=== PATIENT | male | born 1960 | race Caucasian/White ===

== ENCOUNTER 2017-01-17 21:25 | Inpatient (IN) | payer MEDICARE, OTHER ==
--- NOTE | ~2017-01-17 | CR72 ---
[facility] A Service of [facility] RADIOLOGY TEXT RESULTS PATIENT: CAMMIE DOYLE LOCATION: C2A 223-01 : 58 UNIT #: [id number] AGE: [address]: Yunier Gloria MD SEX: M ORDER DR: [id number] [facility] [address] [place], [place] [address] [id number] I MR#: [id number] Acc #: [id number] NAME: CAMMIE DOYLE : 1960 SEX: M STUDY DATE/TIME: 01/22/2017 4:10 UNIT: A ROOM: [facility] STUDY DESCRIPTION: CR Chest Single View Portable Attending Physician: Yunier Gloria M.D. Ordering Physician: Ariella Hamilton M.D. Primary Care Physician: Walter Hagan Jr., M.D. MEDICAL IMAGING REPORT This report is preliminary unless electronic signature is present EXAM Portable chest, 01/22/2017 HISTORY 56-year-old male with shortness of air for 4 days. COMPARISON Chest, 01/19/2017 FINDINGS Frontal chest demonstrates minimal left basilar atelectasis/infiltrate. Right lung is clear. No pneumothorax. Heart size and mediastinum are stable. Left-sided AICD complex. IMPRESSION Mild left basilar atelectasis/infiltrate. Dictated by... Kai Winter M.D. THIS IS AN ELECTRONICALLY VERIFIED REPORT Kai Winter M.D. at 01/23/2017 4:41 PM BRENDON/isabella TD: 01/22/2017 17:03 JOB #: [id number] MEDICAL IMAGING REPORT Page 1 of 1 COPY
--- NOTE | ~2017-01-17 | DS ---
Unit #: [id number] #: [id number] Patient: CAMMIE DOYLE [id number] [address] [address] [id number] I MR#: [id number] NAME: CAMMIE DOYLE ROOM: 223 Age: 56 Sex: M Admission Date: 01/18/2017 : 1960 Discharge Date: 01/23/2017 Attending Physician: Yunier Gloria M.D. Primary Care Physician: Walter Hagan Jr., M.D. DISCHARGE SUMMARY DISCHARGE DIAGNOSES 1. Acute chronic obstructive pulmonary disease exacerbation. 2. Acute hypoxic respiratory failure. 3. Left lower lobe pneumonia. 4. Obstructive sleep apnea, on continuous positive airway pressure. 5. Conjunctivitis. Will continue with 2 more days of Cipro eyedrops. 6. New lung nodule. Dr. Hamilton has been following the patient and can make additional recommendations upon discharge. 7. Major depressive disorder. Stable during this hospitalization. 8. Type 2 diabetes. A1C of 4.8. 9. Cognitive deficits. The patient has full-time corrective therapist at home. 10. Diastolic heart failure with an automatic implantable cardioverter-defibrillator device in place. 11. Chronic thrombocytopenia. 12. Deconditioning, needing rehab. CONSULTANTS Dr. Ariella Hamilton, pulmonary. PROCEDURES None. DIAGNOSTIC STUDIES IMAGING: CT of abdomen and pelvis on 01/16/17. Impression - No acute findings to explain the patient's epigastric pain. Extensive cholelithiasis, but no convincing evidence for acute cholecystitis. Interval enlargement of a nodule in the posterior right lung base. Consider followup with a CT scan. Minimal opacity in the lateral right lung base representing atelectasis or subtle infiltrate. Moderate colonic stool burden. Chest x-ray on 01/17/17. Impression - Minimal subsegmental infiltrate or atelectasis in the inferolateral right upper lobe. Minimal fluid or pleural thickening in the lateral left base. Mild cardiac enlargement. Chest "CT" on 01/19/17. Stable mild cardiac enlargement. The lungs are moderately well inflated. Patchy and linear densities in the right upper lung zone, stable from prior study. Chest x-ray on 01/22/17. Impression - Mild left basilar atelectasis or infiltrate. LABS: The day prior to discharge the patient's labs include BMP with glucose of 226, BUN 27, creatinine 0.9, sodium 143, potassium 5.2, Unit #: [id number] #: [id number] Patient: CAMMIE DOYLE chloride 104, CO2 32, calcium 9.6, magnesium 2, total protein 6, albumin 3.2, total bilirubin 0.6, AST 11, ALT 17, alkaline phosphatase 40. CBC with WBC of 8.1, RBC 3.45, hemoglobin 11.1, hematocrit 33.5, MCV 97.1, MCH 32.3, MCHC 33.3, RDW 13.2, platelets 119, MPV 10.7. HOSPITAL COURSE The patient is a 56-year-old male with past medical history of type 2 diabetes, essential hypertension, congestive heart failure and cognitive deficit who was brought to the emergency department due to symptoms of dyspnea. The patient stated that he was in his usual state of health until 4 days prior to admission when he developed upper respiratory symptoms. He had a nonproductive deep cough, weakness and has been a bit unsteady on his feet. Most of the history was provided by his caregiver who was at the bedside. He was seen recently for abdominal pain and needed to be evaluated for possible hernia repair in the future. Upon presentation to the emergency department, initial oxygen saturation was 88% to 90% on room air. On exam, the patient had bilateral conjunctivitis. The patient was actually quite hypoxic, needing an Oxymizer for oxygen, initially at 8 liters a minute in the emergency department to keep his oxygen in the mid 90s. The patient was admitted for COPD exacerbation, as well as acute hypoxic respiratory failure and likely pneumonia. A BNP was accessed, which was unremarkable, and the patient had no peripheral signs of edema. The patient did have much bronchospasm on initial assessment. We did find the patient had new lung nodule on CT of his abdomen; therefore, pulmonary with Dr. Hamilton was consulted, and he has been following the patient. With regard to any workup, whether surveillance CT or any future workup, to be up to pulmonary to decide. The patient had been receiving high-dose IV steroid, as well as supportive bronchodilator, oxygen and treatment for his conjunctivitis with Cipro eyedrops and antibiotics with doxycycline for his pneumonia. Due to the patient's ongoing upper respiratory infection, as well as pneumonia, the patient has been deconditioned much. The patient has been unable to sit up or pull himself up out of bed in order to eat according to occupational therapy who has seen the patient in consultation. The patient does have 24-hour caregiver at home, but the patient has deconditioning to the point where she would not be able to care for him at this time. Therefore, we are recommending that the patient be discharged to subacute rehab hopefully at [facility]. DISCHARGE CONDITION Stable. DISCHARGE FOLLOWUP/PLAN 1. Follow up with primary care physician within 1-2 weeks upon discharge from rehab. 2. Follow up with pulmonary as necessary. 3. At this time, the patient is 97% on 2 liters of oxygen. We are checking to see how the patient would do on room air. If his oxygen is above 92%, he may be discharged without oxygen. If it is below 92%, the patient may be discharged to rehab with oxygen usage to keep oxygen saturation above 92, weaning to room air as tolerated. 4. The patient can have CBC and a CMP performed within 3 days. DISCHARGE DIET Heart healthy diet with consistent carb. ACTIVITIES Unit #: [id number] #: [id number] Patient: CAMMIE DOYLE Resume activities with assistance of physical and occupational therapy as tolerated with ambulating every day. DISCHARGE MEDICINES 1. Prednisone 40 mg orally for the next 3 days, 30 mg orally for 3 days, 20 mg orally for the next 3 days, 10 mg orally for the next 3 days, then stop. 2. Flomax 0.4 mg orally at bedtime. 3. Amiodarone 200 mg orally daily. 4. Depakote 500 mg orally b.i.d. 5. Gabapentin 300 mg orally t.i.d. 6. Topamax 25 mg orally b.i.d. 7. Glucophage 500 mg orally b.i.d. Can be held if blood sugar is less than 150 prior to its administration via Accu-Cheks. 8. Risperidone 1 mg orally b.i.d. 9. Coreg 12.5 mg orally b.i.d. 10. Atorvastatin 10 mg orally at bedtime. 11. Lisinopril 20 mg orally b.i.d. 12. Neither Humulin N or Humulin R is necessary with an A1C of 4.8. 13. Cipro 0.3% ophthalmic solution 1 drop to each eye q.i.d. for the next 2 days. 14. Aspirin 81 mg orally daily. 15. Spironolactone 12.5 mg orally daily. 16. Protonix 40 mg orally daily. 17. Xopenex inhaled t.i.d. 18. Doxycycline 100 mg orally b.i.d. until January 27. 19. I am asking that please perform eyelid scrub to the patient with water and mild baby soap until there is no longer crusting on the eyelid. Dictated by... Maria De Jesus Anna PA-C for Sarah Gudino TD: 01/23/2017 09:31 JOB #: [id number] DISCHARGE SUMMARY Page 1 of 1 X X DISCHARGE SUMMARY
--- NOTE | ~2017-01-17 | CR72 ---
[facility] A Service of [facility] RADIOLOGY TEXT RESULTS PATIENT: CAMMIE DOYLE LOCATION: CEDOF [id number] : 58 UNIT #: [id number] AGE: [address]: Yunier Gloria MD SEX: M ORDER DR: [id number] [facility] [address] [place], [place] [address] [id number] I MR#: [id number] Acc #: [id number] NAME: CAMMIE DOYLE : 1960 SEX: M STUDY DATE/TIME: 01/17/2017 21:08 UNIT: [facility] ROOM: [facility] STUDY DESCRIPTION: CR Chest Single View Portable Attending Physician: Radha Medina M.D. Ordering Physician: Americo Joyner M.D. Primary Care Physician: Walter Hagan Jr., M.D. MEDICAL IMAGING REPORT This report is preliminary unless electronic signature is present EXAM Portable chest, 01/17/2017 HISTORY Cough, shortness of air and congestion for 4 days. FINDINGS Mild cardiac enlargement. Normal pulmonary vascularity. Small amount of fluid or pleural thickening at the left base. Mild linear atelectasis or scarring in the lateral right upper lobe and subtle subsegmental infiltrate or atelectasis in the inferolateral right upper lobe. Left subclavian pacer leads extend into the right atrium and right ventricle. IMPRESSION 1. Minimal subsegmental infiltrate or atelectasis in the inferolateral right upper lobe. 2. Minimal fluid or pleural thickening in the lateral left base. 3. Mild cardiac enlargement. Dictated by... Shad Lutz M.D. THIS IS AN ELECTRONICALLY VERIFIED REPORT Shad Lutz M.D. at 01/18/2017 2:43 PM DFBrad/kasandra TD: 01/18/2017 04:05 JOB #: [id number] MEDICAL IMAGING REPORT [facility] A Service of [facility] RADIOLOGY TEXT RESULTS PATIENT: CAMMIE DOYLE LOCATION: CEDOF [address]-59 : [birth year] UNIT #: [id number] AGE: [address]: Yunier Gloria MD SEX: M ORDER DR: Page 1 of 1 COPY
--- NOTE | ~2017-01-17 | CR71 ---
[facility] A Service of [facility] RADIOLOGY TEXT RESULTS PATIENT: CAMMIE DOYLE LOCATION: [place] [id number] : [birth year] UNIT #: [id number] AGE: [address]: Yunier Gloria MD SEX: M ORDER DR: [id number] [facility] [address] [place], [place] [address] [id number] I MR#: [id number] Acc #: [id number] NAME: CAMMIE DOYLE : 1960 SEX: M STUDY DATE/TIME: 01/19/2017 5:04 UNIT: C5B ROOM: 2 STUDY DESCRIPTION: CR Chest Single View Attending Physician: Yunier Gloria M.D. Ordering Physician: Ariella Hamilton M.D. Primary Care Physician: Walter Hagan Jr., M.D. MEDICAL IMAGING REPORT This report is preliminary unless electronic signature is present EXAM Portable chest x-ray 01/19/2017 HISTORY Pneumonia. FINDINGS AP radiograph of the chest is presented. Patient gives additional history of respiratory failure for 6 days. Comparison 01/17/2017. Cardiac pacemaker unchanged. Stable mild cardiac enlargement. The lungs are moderately well inflated. There are some mild patchy and linear densities in the right upper lung zone stable to marginally increased from prior study, in the lateral right upper lobe, and at the left lung base. These are nonspecific and could involve areas of pneumonitis/developing pneumonia and/or atelectasis. There is no dense airspace consolidation. Slightly ill-defined left lateral costophrenic sulcus may reflect small pleural effusion. No pneumothorax. No suspicious nodule. Underlying pulmonary vasculature appears within normal limits. Followup of findings to radiographic resolution recommended. Dictated by... Prashant Valadez M.D. THIS IS AN ELECTRONICALLY VERIFIED REPORT Prashant Valadez M.D. at 01/20/2017 5:05 PM MARIUSZ/finn TD: 01/19/2017 10:01 JOB #: [id number] MEDICAL IMAGING REPORT [facility] A Service of [facility] RADIOLOGY TEXT RESULTS PATIENT: CAMMIE DOYLE LOCATION: [facility] 223-01 : [birth year] UNIT #: [id number] AGE: [address]: Yunier Gloria MD SEX: M ORDER DR: Page 1 of 1 COPY
--- NOTE | ~2017-01-17 | EKG ---
PATIENT: CAMMIE DOYLE UNIT #: [id number] Ventricular Rate: 78 BPM Atrial Rate: 78 BPM P-R Interval: 158 ms QRS Duration: 150 ms Q-T Interval: 422 ms QTC Calculation(Bezet): 481 ms P [place]: 85 degrees Calculated R [place]: -21 degrees Calculated T [place]: 17 degrees Diagnosis Line: Atrial-sensed ventricular-paced rhythm Diagnosis Line: Abnormal ECG Diagnosis Line: When compared with ECG of 17-JAN-2017 21:39, Diagnosis Line: (unconfirmed) Diagnosis Line: Vent. rate has increased BY 2 BPM Diagnosis Line: Confirmed by RAFAEL DUDLEY MD ([id number]) on 01/18/2017 Diagnosis Line: 9:19:52 PM INTERPRETING MD: LUIS ENRIQUE LEONARD
--- NOTE | ~2017-01-17 | HP ---
Unit #: [id number] #: [id number] Patient: CAMMIE DOYLE [id number] [address] [place], [place] [address] [id number] I MR#: [id number] NAME: CAMMIE DOYLE ROOM: [facility] Age: 56 Sex: M Admission Date: 01/18/2017 : 1960 Attending Physician: Radha Medina M.D. Primary Care Physician: Walter Hagan Jr., M.D. HISTORY AND PHYSICAL CHIEF COMPLAINT Community-acquired pneumonia with respiratory failure. HISTORY This pleasant 56-year-old male with AODM, hypertension, congestive heart failure, and cognitive defects, is admitted for community-acquired pneumonia. The patient was in his usual state of health until four days prior to admission when he developed a URI. He has had a nonproductive deep cough, weakness, and has been a bit unsteady on his feet. Most of the history is given by the caregiver at bedside. He was recently seen for abdominal pain with plans to perform possible hernia repair in the future. I am unsure. A CT scan was performed 01/16/2017 of the abdomen and pelvis showing gallstones, interval enlargement of a nodule at the posterior right lung base, and minimal opacity lateral right lung base representing atelectasis versus subtle infiltrate. The patient presented to this emergency department last evening with worsening cough. His O2 sats on room air were between 88% to 90%. On examination, he does have bilateral conjunctivitis. Was given 500 mg of IV Levaquin, along with Cipro ophthalmic eyedrops bilaterally. PAST MEDICAL HISTORY 1. 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 2. Obstructive sleep apnea, on CPAP. 3. Essential hypertension. 4. Thrombocytopenia, which is chronic. Uncertain of cause. 5. History of arrhythmia and congestive heart failure, status post AICD placement. Will obtain records from [facility]. 6. Major depressive disorder. 7. DJD. 8. Gallstones. 9. Right knee surgery. ALLERGIES No known drug allergies. HOME MEDICATIONS 1. Neurontin 300 mg t.i.d. 2. Novolin N and Novolin R which are only p.r.n. 3. Topamax 25 mg b.i.d. 4. Glucophage 500 mg b.i.d. 5. Amiodarone 200 mg daily. 6. Depakote 500 mg b.i.d. Unit #: [id number] #: [id number] Patient: CAMMIE DOYLE 7. Lisinopril 20 mg b.i.d. 8. Lipitor 10 mg q. h.s. FAMILY HISTORY Negative for heart or lung disease. SOCIAL HISTORY The patient lives with a caregiver and her son. Stopped smoking eight months ago, does not drink alcohol. REVIEW OF SYSTEMS Notable for deep cough, conjunctivitis, unsteadiness on the feet from urinary incontinence. The patient, himself, is a poor historian due to his cognitive deficit, and most of the history was obtained from caregiver. PHYSICAL EXAMINATION GENERAL APPEARANCE: Pleasant, moderately obese, 56-year-old male, currently in no acute distress. VITAL SIGNS: Temperature 98, pulse 75, respirations 18, blood pressure 137/62. O2 saturation was anywhere between 88 to above 90% on room air. HEENT: Eyes PERRLA. Extraocular muscles are intact. Bilateral conjunctivitis noted. Pharynx is benign, edentulous with dry mucosal membranes. NECK: Supple without adenopathy or thyromegaly. CHEST: There may be a few crackles at the right base. CARDIAC: Normal S1 and S2 without murmur. ABDOMEN: Bowel sounds are present. The patient is tender in the epigastric and right upper quadrant without rebound or guarding. No hepatosplenomegaly or masses. EXTREMITIES: Without edema. Pedal pulses are present but diminished. No ulcers on the feet. NEUROLOGIC EXAM: The patient is awake, alert. He is mildly confused. Has equal strength throughout but is quite weak on exam, needs help just to sit up. DIAGNOSTIC STUDIES LABORATORY: Admission labs - hematocrit 35.2, down from 40 six years ago. Platelet count is 120. Has been low in the past. Normal white count. SMA-12 - albumin is 3.4. BNP normal. Cardiac markers are negative. Flu serology negative. Urinalysis - positive urobilinogen. IMAGING: Chest x-ray - mild cardiomegaly. Infiltrate right upper lobe. Small amount of fluid versus pleural thickening right base. CARDIOVASCULAR: EKG shows atrial sensed ventricular paced rhythm. ASSESSMENT 1. Community-acquired pneumonia with acute hypoxic respiratory failure: Of note, a recent CT scan of the abdomen and pelvis show an enlarging right lower lobe lung nodule. The patient stopped smoking eight months ago. 2. Obstructive sleep apnea, on CPAP. Unit #: [id number] #: [id number] Patient: CAMMIE DOYLE 3. Conjunctivitis. 4. Adult onset diabetes mellitus: The patient uses p.r.n. insulin and Glucophage. 5. Major depressive disorder. 6. Cognitive deficits, patient has caregiver at home. 7. Hypertension. 8. History of congestive heart failure, status post AICD placement: Details are unknown. 9. Chronic mild thrombocytopenia. PLANS 1. Rocephin and doxycycline as patient takes amiodarone. Will also write for Xopenex. 2. Ciprofloxacin ophthalmic solution. 3. Request old records from [facility]. 4. Pulmonary to see given increased lung nodule. 5. DVT prophylaxis. 6. Sliding scale insulin and hold Glucophage. Dictated by Radha Medina M.D. AML/df TD: 01/18/2017 05:26 JOB #: [id number] HISTORY AND PHYSICAL Page 1 of 1 X Radha Medina MD HISTORY AND PHYSICAL
[~2017-01-17 21:25] MED LIST: AFRIN15 ML; ALBUTEROL17 GM INH; BACTRIM DS TABL1 TAB PO; DEPAKOTE PO; FLEXERIL10 MG PO; KEFLEX PO; LORTAB 10/500 T1 TAB PO; METFORMIN PO; VIBRAMYCIN100 M1 PO
[2017-01-17 21:41] LABS: POC - CKMB 2.4 ng/mL (0.0-7.9); POC - TROPONIN <0.05 ng/mL (<=0.05)
[2017-01-17 21:56] LABS: BASOPHIL% 0.5 % (0-2.5); EOSINOPHIL# 0.1 X10e3 (0-0.7); EOSINOPHIL% 2.1 % (0.0-7.0); HEMATOCRIT 35.2 % (38.0-50.0); HEMOGLOBIN 11.7 gm/dL (13.0-16.0); LYMPHOCYTE# 0.7 X10e3 (1.0-3.5); LYMPHOCYTE% 16.4 % (17.0-45.0); MEAN CELL VOLUME 99.2 FL (83-96); MEAN CORPUSCULAR HEMOGLOBIN 33.1 PG (28-34); MEAN CORPUSCULAR HGB CONC 33.4 g/dL (30-36); MEAN PLATELET VOLUME 10.8 FL (6.5-11.5); MONOCYTE# 0.8 X10e3 (0-1.0); MONOCYTE% 18.9 % (3.0-12.0); NEUTROPHIL# 2.7 X10e3 (1.5-7.1); NEUTROPHIL% 62.1 % (40-75); PLATELET COUNT 102 X10e3 (140-420); RED BLOOD COUNT 3.54 X10e (3.90-5.60); WHITE BLOOD COUNT 4.4 X10e3 (4.0-10.5)
[2017-01-17 21:57] LABS: DIFF IND NO
[2017-01-17 22:22] LABS: ALBUMIN SERUM 3.4 g/dL (3.5-5.0); BILIRUBIN, DIRECT 0.1 mg/dL (0.0-0.2); BILIRUBIN,INDIRECT 0.2 mg/dL (0.0-0.9); BILIRUBIN,TOTAL 0.3 mg/dL (0.2-2.0); CALCIUM SERUM 9.3 mg/dL (8.4-10.2); CREATININE SERUM 0.9 mg/dL (0.6-1.4); GLOM FILT RATE Estimated 94.5 mL/min (>60); POTASSIUM 3.8 mmol/L (3.5-5.1)
[2017-01-17 22:41] LABS: INFLUENZA A NEG (NEG)
[2017-01-17 22:42] LABS: INFLUENZA B NEG (NEG)
[2017-01-17 23:17] LABS: URINE SOURCE CLEAN CATCH
[2017-01-17 23:21] LABS: URINE APPEARANCE CLEAR; URINE BILIRUBIN NEG (NEG); URINE BLOOD NEG (NEG); URINE COLOR YELLOW; URINE GLUCOSE NEG (NEG); URINE KETONE 2+ (NEG); URINE LEUKOCYTE ESTERASE NEG (NEG); URINE NITRATE NEG (NEG); URINE PH 6.5 (5-8); URINE PROTEIN NEG (NEG); URINE SPECIFIC GRAVITY 1.024 (1.003-1.035)
[2017-01-17 23:26] LABS: CULTURE INDICATED? NO
[2017-01-17] MEDS ORDERED: RISPERIDONE1 MG PO (23:47)
[2017-01-17] MEDS ORDERED: COREG12.5 MG PO (23:48)
[2017-01-17] MEDS ORDERED: ASPIRIN81 MG PO (23:48)
[2017-01-17] MEDS ORDERED: ALDACTONE25 MG PO (23:48)
[2017-01-17] MEDS ORDERED: PROTONIX PO (23:48)
[2017-01-17] MEDS ORDERED: HUMULIN N100 U/ML SUBQ (23:49)
[2017-01-17] MEDS ORDERED: GABAPENTIN300 M2 PO (23:49)
[2017-01-17] MEDS ORDERED: HUMULIN R100 U/ML SUBQ (23:49)
[2017-01-17] MEDS ORDERED: GLUCOPHAGE500 M1 PO (23:50)
[2017-01-17] MEDS ORDERED: TOPAMAX25 MG PO (23:50)
[2017-01-17] MEDS ORDERED: ATORVASTATIN CA10 MG PO (23:51)
[2017-01-17] MEDS ORDERED: DIVALPROEX SOD500 MG PO (23:51)
[2017-01-17] MEDS ORDERED: PACERONE PO (23:51)
[2017-01-17] MEDS ORDERED: LISINOPRIL20 MG PO (23:51)
[2017-01-18 07:12] LABS: EOSINOPHIL# 0.3 X10e3 (0-0.7); EOSINOPHIL% 7.7 % (0.0-7.0); HEMATOCRIT 31.8 % (38.0-50.0); HEMOGLOBIN 10.6 gm/dL (13.0-16.0); MEAN CELL VOLUME 99.4 FL (83-96); MEAN CORPUSCULAR HGB CONC 33.2 g/dL (30-36); MEAN PLATELET VOLUME 10.1 FL (6.5-11.5); MONOCYTE# 1.1 X10e3 (0-1.0); NEUTROPHIL# 2.9 X10e3 (1.5-7.1); NEUTROPHIL% 67.3 % (40-75); RED CELL DISTRIBUTION WIDTH 13.8 % (11.0-15.5); WHITE BLOOD COUNT 4.3 X10e3 (4.0-10.5)
[2017-01-18 07:28] LABS: PLATELET COUNT 90 X10e3 (140-420)
[2017-01-18 07:29] LABS: DIFF IND YES
[2017-01-18 07:30] LABS: PLATELET ESTIMATE DECREASED (NORMAL); RBC NORMAL YES
[2017-01-18 07:39] LABS: BUN/CREATININE RATIO 18.75; CALCIUM SERUM 8.9 mg/dL (8.4-10.2); CREATININE SERUM 0.8 mg/dL (0.6-1.4); GLOM FILT RATE Estimated 99.2 mL/min (>60); POTASSIUM 3.9 mmol/L (3.5-5.1)
[2017-01-18 16:15] LABS: CK TOTAL 49 IU/L (36-174)
[2017-01-19 05:23] LABS: HEMATOCRIT 33.3 % (38.0-50.0); HEMOGLOBIN 11.2 gm/dL (13.0-16.0); MEAN CELL VOLUME 98.1 FL (83-96); MEAN CORPUSCULAR HEMOGLOBIN 33.1 PG (28-34); MEAN CORPUSCULAR HGB CONC 33.7 g/dL (30-36); MEAN PLATELET VOLUME 9.4 FL (6.5-11.5); RED BLOOD COUNT 3.4 X10e (3.90-5.60); RED CELL DISTRIBUTION WIDTH 13.9 % (11.0-15.5); WHITE BLOOD COUNT 4.6 X10e3 (4.0-10.5)
[2017-01-19 06:40] LABS: BUN/CREATININE RATIO 21.66; CALCIUM SERUM 9.4 mg/dL (8.4-10.2); CREATININE SERUM 0.6 mg/dL (0.6-1.4); GLOM FILT RATE Estimated 111.7 mL/min (>60); MAGNESIUM 1.6 mg/dL (1.6-3.0)
[2017-01-20 07:45] LABS: HEMATOCRIT 33.9 % (38.0-50.0); HEMOGLOBIN 11.2 gm/dL (13.0-16.0); MEAN CELL VOLUME 99.1 FL (83-96); MEAN CORPUSCULAR HEMOGLOBIN 32.7 PG (28-34); MEAN PLATELET VOLUME 10.3 FL (6.5-11.5); RED BLOOD COUNT 3.42 X10e (3.90-5.60); RED CELL DISTRIBUTION WIDTH 13.4 % (11.0-15.5); WHITE BLOOD COUNT 4.2 X10e3 (4.0-10.5)
[2017-01-20 09:14] LABS: BUN/CREATININE RATIO 27.14; CALCIUM SERUM 9.2 mg/dL (8.4-10.2); CREATININE SERUM 0.7 mg/dL (0.6-1.4); GLOM FILT RATE Estimated 104.8 mL/min (>60); MAGNESIUM 1.9 mg/dL (1.6-3.0); POTASSIUM 4.3 mmol/L (3.5-5.1)
[2017-01-21 06:39] LABS: ALBUMIN SERUM 3.2 g/dL (3.5-5.0); BILIRUBIN,TOTAL 0.6 mg/dL (0.2-2.0); BUN/CREATININE RATIO 25.55; CALCIUM SERUM 9.6 mg/dL (8.4-10.2); CREATININE SERUM 0.9 mg/dL (0.6-1.4); GLOM FILT RATE Estimated 94.5 mL/min (>60); POTASSIUM 4.7 mmol/L (3.5-5.1)
[2017-01-21 09:26] LABS: HEMATOCRIT 33.7 % (38.0-50.0); HEMOGLOBIN 11.3 gm/dL (13.0-16.0); MEAN CELL VOLUME 98.8 FL (83-96); MEAN CORPUSCULAR HGB CONC 33.4 g/dL (30-36); MEAN PLATELET VOLUME 10.5 FL (6.5-11.5); RED BLOOD COUNT 3.41 X10e (3.90-5.60); RED CELL DISTRIBUTION WIDTH 13.4 % (11.0-15.5)
[2017-01-21 09:27] LABS: WHITE BLOOD COUNT 8.5 X10e3 (4.0-10.5)
[2017-01-22 07:18] LABS: CALCIUM SERUM 9.6 mg/dL (8.4-10.2); CREATININE SERUM 0.9 mg/dL (0.6-1.4); GLOM FILT RATE Estimated 94.5 mL/min (>60); POTASSIUM 5.2 mmol/L (3.5-5.1)
[2017-01-22 07:59] LABS: HEMATOCRIT 33.5 % (38.0-50.0); HEMOGLOBIN 11.1 gm/dL (13.0-16.0); MEAN CELL VOLUME 97.1 FL (83-96); MEAN CORPUSCULAR HEMOGLOBIN 32.3 PG (28-34); MEAN CORPUSCULAR HGB CONC 33.3 g/dL (30-36); MEAN PLATELET VOLUME 10.7 FL (6.5-11.5); RED BLOOD COUNT 3.45 X10e (3.90-5.60); RED CELL DISTRIBUTION WIDTH 13.2 % (11.0-15.5); WHITE BLOOD COUNT 8.1 X10e3 (4.0-10.5)
== END 2017-01-23 13:58 | DRG 189 ==
LOC: CED 21:25 → CEDOF 01-18 01:00 → C5B 01-18 18:15 → C2A 01-19 23:55
PROVIDERS: Emergency Medicine; Internal Medicine; Internal Medicine Pulmonary Disease; Physician Assistant Medical
DX: J96.01 Acute respiratory failure with hypoxia (principal); J18.9 Pneumonia, unspecified organism; Q79.59 Other congenital malformations of abdominal wall; I50.32 Chronic diastolic (congestive) heart failure; E11.42 Type 2 diabetes mellitus with diabetic polyneuropathy; D69.6 Thrombocytopenia, unspecified; J44.1 Chronic obstructive pulmonary disease with (acute) exacerbation; G47.33 Obstructive sleep apnea (adult) (pediatric); H10.9 Unspecified conjunctivitis; R91.1 Solitary pulmonary nodule; F32.9 Major depressive disorder, single episode, unspecified; Z79.84 Long term (current) use of oral hypoglycemic drugs; Z95.810 Presence of automatic (implantable) cardiac defibrillator; R41.89 Other symptoms and signs involving cognitive functions and awareness; M19.90 Unspecified osteoarthritis, unspecified site; Z87.891 Personal history of nicotine dependence; M62.3 Immobility syndrome (paraplegic); K80.20 Calculus of gallbladder without cholecystitis without obstruction
CPT/HCPCS: 36415; 71010; 74177; 80048; 80053; 80076; 81003; 82308; 82550; 82553; 82565; 82947; 83036; 83735; 83880; 84484; 85025; 85027; 87040; 87070; 87205; 87633; 87804; 93005; 94640; 94760; 96365; 97116; 97162; 97165; 97530; 97535; 99285; G8978-GP; G8979-GP; G8987-GO; G8988-GO; J0696; J1650; J1956; J2920; J2930; J3475; Q9967

== ENCOUNTER 2017-05-07 17:02 | Emergency (ER) | payer MEDICARE, OTHER ==
[~2017-05-07] VITALS: Ht 175.3 cm; Wt 101.6 kg
--- NOTE | ~2017-05-07 | EKG ---
PATIENT: CAMMIE DOYLE UNIT #: [id number] Ventricular Rate: 60 BPM Atrial Rate: 42 BPM P-R Interval: 178 ms QRS Duration: 122 ms Q-T Interval: 480 ms QTC Calculation(Bezet): 480 ms P [place]: 62 degrees Calculated R [place]: -26 degrees Calculated T [place]: 52 degrees Diagnosis Line: AV dual-paced rhythm Diagnosis Line: Abnormal ECG Diagnosis Line: When compared with ECG of 17-JAN-2017 21:42, Diagnosis Line: Vent. rate has decreased BY 18 BPM Diagnosis Line: Confirmed by FRANCISCO MACIAS MD ([id number]) on Diagnosis Line: 05/07/2017 5:45:44 PM INTERPRETING MD: GILBERTO LEONARD
[~2017-05-07 17:02] MED LIST changes: +ALDACTONE25 MG PO; +ASPIRIN81 MG PO; +ATORVASTATIN CA10 MG PO; +COREG12.5 MG PO; +DIVALPROEX SOD500 MG PO; +GABAPENTIN300 M2 PO; +GLUCOPHAGE500 M1 PO; +HUMULIN N100 U/ML SUBQ; +HUMULIN R100 U/ML SUBQ; +LISINOPRIL20 MG PO; +PACERONE PO; +PROTONIX PO; +RISPERIDONE1 MG PO; +TOPAMAX25 MG PO
[2017-05-07 18:15] LABS: BASOPHIL% 0.6 % (0-2.5); EOSINOPHIL% 0.7 % (0.0-7.0); HEMATOCRIT 31.5 % (38.0-50.0); HEMOGLOBIN 10.7 gm/dL (13.0-16.0); LYMPHOCYTE# 0.7 X10e3 (1.0-3.5); LYMPHOCYTE% 16.2 % (17.0-45.0); MEAN CELL VOLUME 96.4 FL (83-96); MEAN CORPUSCULAR HEMOGLOBIN 32.6 PG (28-34); MEAN CORPUSCULAR HGB CONC 33.8 g/dL (30-36); MEAN PLATELET VOLUME 10.8 FL (6.5-11.5); MONOCYTE# 0.3 X10e3 (0-1.0); MONOCYTE% 6.9 % (3.0-12.0); NEUTROPHIL# 3.5 X10e3 (1.5-7.1); NEUTROPHIL% 75.6 % (40-75); RED BLOOD COUNT 3.27 X10e (3.90-5.60); RED CELL DISTRIBUTION WIDTH 13.6 % (11.0-15.5); WHITE BLOOD COUNT 4.6 X10e3 (4.0-10.5)
[2017-05-07 18:31] LABS: DIFF IND NO; PLATELET COUNT 66 X10e3 (140-420)
[2017-05-07 18:37] LABS: ALBUMIN SERUM 3.5 g/dL (3.5-5.0); BILIRUBIN, DIRECT 0.1 mg/dL (0.0-0.2); BILIRUBIN,INDIRECT 0.6 mg/dL (0.0-0.9); BILIRUBIN,TOTAL 0.7 mg/dL (0.2-2.0); BUN/CREATININE RATIO 23.63; CALCIUM SERUM 8.8 mg/dL (8.4-10.2); CREATININE SERUM 1.1 mg/dL (0.6-1.4); GLOM FILT RATE Estimated 74.1 mL/min (>60); PROTEIN TOTAL SERUM 6.1 g/dL (6.0-8.3)
== END 2017-05-07 19:10 | disposition home or self-care (01) ==
LOC: CED 17:02
PROVIDERS: Emergency Medicine
DX: E11.40 Type 2 diabetes mellitus with diabetic neuropathy, unspecified (principal); D69.6 Thrombocytopenia, unspecified; I11.0 Hypertensive heart disease with heart failure; I50.9 Heart failure, unspecified; J44.9 Chronic obstructive pulmonary disease, unspecified; F32.9 Major depressive disorder, single episode, unspecified; F17.200 Nicotine dependence, unspecified, uncomplicated; Z79.4 Long term (current) use of insulin; Z79.82 Long term (current) use of aspirin; Z79.899 Other long term (current) drug therapy
CPT/HCPCS: 36415; 80048; 80076; 82947; 85025; 93005; 99284

== ENCOUNTER 2017-05-16 09:17 | Emergency (ER) | payer MEDICARE, OTHER ==
[~2017-05-16] VITALS: Ht 172.7 cm; Wt 80.7 kg
--- NOTE | ~2017-05-16 | CR243 ---
[facility] A Service of [facility] RADIOLOGY TEXT RESULTS PATIENT: CAMMIE DOYLE LOCATION: [facility] : 58 UNIT #: [id number] AGE: [address]: Billy Rodriguez MD SEX: M ORDER DR: [id number] [facility] [address] [place], [place] [address] [id number] E MR#: [id number] Acc #: [id number] NAME: CAMMIE DOYLE : 1960 SEX: M STUDY DATE/TIME: 05/16/2017 UNIT: NACHO ROOM: STUDY DESCRIPTION: CR Thoracic Spine 3 Views Attending Physician: Billy Rodriguez M.D. Ordering Physician: Billy Rodriguez M.D. Primary Care Physician: Walter Hagan Jr., M.D. MEDICAL IMAGING REPORT This report is preliminary unless electronic signature is present EXAM Thoracic spine series 05/16/2017 0952 hours HISTORY Patient complains of bilateral leg pain and numbness with generalized weakness today. History of diabetes. COMPARISON Thoracic spine series 03/21/2016 FINDINGS AP and lateral views of the thoracic spine and a lateral swimmer's view of the cervical thoracic junction were performed. The alignment is normal. No compression fracture is seen. There is multilevel endplate spurring and flowing osteophytes similar to 03/21/2016. IMPRESSION Stable multilevel endplate spurring and flowing osteophytes similar to 03/21/2016. No acute fracture or subluxation. Dictated by... Sun Kaur M.D. THIS IS AN ELECTRONICALLY VERIFIED REPORT Sun Kaur M.D. at 05/17/2017 8:53 AM BARRERA/srini TD: 05/16/2017 14:49 JOB #: [id number] MEDICAL IMAGING REPORT [facility] A Service of [facility] RADIOLOGY TEXT RESULTS PATIENT: CAMMIE DOYLE LOCATION: [facility] : 58 UNIT #: [id number] AGE: [address]: Billy Rodriguez MD SEX: M ORDER DR: Page 1 of 1 COPY
--- NOTE | ~2017-05-16 | CR181 ---
[facility] A Service of [facility] RADIOLOGY TEXT RESULTS PATIENT: CAMMIE DOYLE LOCATION: [facility] : 58 UNIT #: [id number] AGE: [address]: Billy Rodriguez MD SEX: M ORDER DR: [id number] [facility] [address] [place], [place] [address] [id number] MR#: [id number] Acc #: [id number] NAME: CAMMIE DOYLE : 1960 SEX: M STUDY DATE/TIME: 05/16/2017 09:54 UNIT: [facility] ROOM: STUDY DESCRIPTION: CR Lumbar Spine 2 or 3 Views Attending Physician: Billy Rodriguez M.D. Ordering Physician: [id number] Esthela Rodriguez Primary Care Physician: Walter Hagan Jr., M.D. MEDICAL IMAGING REPORT This report is preliminary unless electronic signature is present EXAM Lumbar spine series, 05/16/2017 09:54 hours HISTORY 56-year-old man complaining of bilateral leg pain and numbness, generalized weakness. History of diabetes. COMPARISON Lumbar spine series, 03/21/2016 FINDINGS AP, lateral views and a cone lateral view of the lumbosacral junction demonstrate five non-rib bearing lumbar type vertebrae which are normally aligned. There is mild endplate spurring similar to prior study. No significant disc height loss. There is moderate facet arthropathy particularly at L3-4, 4-5 and 5-1 similar to prior study. IMPRESSION 1. No fracture, subluxation or significant disc height loss. 2. Stable endplate spurring and lower lumbar facet arthropathy. Findings appear similar to 03/21/2016. Dictated by... Sun Kaur M.D. THIS IS AN ELECTRONICALLY VERIFIED REPORT Sun Kaur M.D. at 05/17/2017 8:53 AM Kita TD: 05/16/2017 14:47 JOB #: [id number] MEDICAL IMAGING REPORT [facility] A Service of [facility] RADIOLOGY TEXT RESULTS PATIENT: CAMMIE DOYLE [id number] 58 UNIT #: [id number] AGE: [address]: Billy Rodriguez MD SEX: M ORDER DR: Page 1 of 1 COPY
--- NOTE | ~2017-05-16 | CR72 ---
[facility] A Service of [facility] & [facility] RADIOLOGY TEXT RESULTS PATIENT: CAMMIE DOYLE LOCATION: [facility] : 58 UNIT #: [id number] AGE: [address]: Billy Rodriguez MD SEX: M ORDER DR: [id number] [facility] [address] [place], [place] [address] [id number] MR#: [id number] #: [id number] NAME: CAMMIE DOYLE : 1960 SEX: M STUDY DATE/TIME: 05/16/2017 10:57 UNIT: [facility] ROOM: STUDY DESCRIPTION: CR Chest Single View Portable Attending Physician: Billy Rodriguez M.D. Ordering Physician: [id number] Esthela Rodriguez Primary Care Physician: Walter Hagan Jr., M.D. MEDICAL IMAGING REPORT This report is preliminary unless electronic signature is present EXAM Portable chest HISTORY Cough onset today. Generalized weakness, bilateral leg pain. COMPARISON 01/22/2017 FINDINGS AP portable of the chest demonstrates low lung volumes. Loss of left hemidiaphragm, blunting left CP angle may represent small left pleural effusion and/or pleural thickening. Coarse parenchymal markings suggest background fibrosis. Cardiomegaly but no convincing evidence of failure. Pacemaker leads in expected position. No pneumothorax. Dictated by... Flako Hale M.D. THIS IS AN ELECTRONICALLY VERIFIED REPORT Flako Hale M.D. at 05/16/2017 5:07 PM GOSIA/new TD: 05/16/2017 15:16 JOB #: [id number] MEDICAL IMAGING REPORT Page 1 of 1 COPY
[2017-05-16 10:16] LABS: BASOPHIL% 0.2 % (0-2.5); EOSINOPHIL% 0.9 % (0.0-7.0); HEMATOCRIT 32.4 % (38.0-50.0); HEMOGLOBIN 11.2 gm/dL (13.0-16.0); LYMPHOCYTE# 0.7 X10e3 (1.0-3.5); LYMPHOCYTE% 20.9 % (17.0-45.0); MEAN CORPUSCULAR HEMOGLOBIN 33.1 PG (28-34); MEAN CORPUSCULAR HGB CONC 34.5 g/dL (30-36); MEAN PLATELET VOLUME 10.9 FL (6.5-11.5); MONOCYTE# 0.3 X10e3 (0-1.0); NEUTROPHIL# 2.4 X10e3 (1.5-7.1); PLATELET COUNT 66 X10e3 (140-420); RED BLOOD COUNT 3.37 X10e (3.90-5.60); RED CELL DISTRIBUTION WIDTH 13.3 % (11.0-15.5); WHITE BLOOD COUNT 3.5 X10e3 (4.0-10.5)
[2017-05-16 10:17] LABS: DIFF IND YES
[2017-05-16] MEDS ORDERED: ACETAMINOPHEN325 MG PO (10:20)
[2017-05-16] MEDS ORDERED: LASIX20 MG PO (10:20)
[2017-05-16] MEDS ORDERED: XOPENEX0.63 MG/3 NEB (10:20)
[2017-05-16] MEDS ORDERED: LORTAB 5-325 M1 EACH PO (10:21)
[2017-05-16] MEDS ORDERED: NITROFURANTOIN100 M3 PO (10:21)
[2017-05-16] MEDS ORDERED: ATORVASTATIN CA10 MG PO (10:21)
[2017-05-16] MEDS ORDERED: DOCUSATE SODIU100 MG PO (10:21)
[2017-05-16] MEDS ORDERED: GRALISE600 MG PO (10:22)
[2017-05-16] MEDS ORDERED: PANTOPRAZOLE SO40 MG PO (10:22)
[2017-05-16] MEDS ORDERED: RISPERIDONE PO (10:22)
[2017-05-16] MEDS ORDERED: ASPIRIN81 M2 PO (10:22)
[2017-05-16] MEDS ORDERED: MOBIC PO (10:22)
[2017-05-16] MEDS ORDERED: ALDACTONE PO (10:22)
[2017-05-16] MEDS ORDERED: LISINOPRIL PO (10:22)
[2017-05-16] MEDS ORDERED: COREG12.5 M1 PO (10:23)
[2017-05-16] MEDS ORDERED: MELOXICAM7.5 MG PO (10:23)
[2017-05-16] MEDS ORDERED: DEPAKOTE ER PO (10:23)
[2017-05-16] MEDS ORDERED: FLOMAX0.4 M1 PO (10:23)
[2017-05-16] MEDS ORDERED: PROZAC10 M1 PO (10:24)
[2017-05-16] MEDS ORDERED: AMIODARONE HCL200 MG PO (10:24)
[2017-05-16] MEDS ORDERED: SINGULAIR PO (10:24)
[2017-05-16] MEDS ORDERED: METFORMIN PO (10:24)
[2017-05-16] MEDS ORDERED: HUMULIN R100 UNIT/1 SUBQ (10:28)
[2017-05-16] MEDS ORDERED: PATIENT'S PHARMACY (10:28)
[2017-05-16] MEDS ORDERED: HUMULIN N100 UNIT/2 SUBQ (10:29)
[2017-05-16 10:35] LABS: ALBUMIN SERUM 3.5 g/dL (3.5-5.0); BILIRUBIN,TOTAL 0.8 mg/dL (0.2-2.0); BUN/CREATININE RATIO 27.77; CALCIUM SERUM 9.2 mg/dL (8.4-10.2); CREATININE SERUM 0.9 mg/dL (0.6-1.4); GLOM FILT RATE Estimated 94.5 mL/min (>60)
[2017-05-16 10:45] LABS: ANISOCYTOSIS SL; PLATELET ESTIMATE DECREASED (NORMAL)
[2017-05-16 10:54] LABS: URINE SOURCE CLEAN CATCH
[2017-05-16 11:07] LABS: URINE APPEARANCE CLEAR; URINE BILIRUBIN NEG (NEG); URINE BLOOD NEG (NEG); URINE COLOR DK YELLOW; URINE GLUCOSE NEG (NEG); URINE KETONE TRACE (NEG); URINE LEUKOCYTE ESTERASE TRACE (NEG); URINE NITRATE NEG (NEG); URINE PROTEIN NEG (NEG); URINE SPECIFIC GRAVITY 1.019 (1.003-1.035)
[2017-05-16 11:10] LABS: URBCS1 AUWI 0-2 /[HPF] (0-2); URINE BACTERIA AUWI NEG (NEGATIVE); URINE SQUAMOUS EPITHELIAL CELL NONE SEEN /[HPF]; UWBCS1 AUWI 0-2 (0-5)
[2017-05-16 11:29] LABS: CULTURE INDICATED? NO
== END 2017-05-16 12:35 | disposition home or self-care (01) ==
LOC: CED 09:17
PROVIDERS: Emergency Medicine
DX: M54.5 Low back pain (principal); G89.29 Other chronic pain; E11.9 Type 2 diabetes mellitus without complications; F41.9 Anxiety disorder, unspecified; J44.9 Chronic obstructive pulmonary disease, unspecified
CPT/HCPCS: 36415; 51701; 71010; 72072; 72100; 80053; 81003; 85025; 96374; 99284; J1885

== ENCOUNTER 2017-06-01 14:04 | Observation (INO) | payer MEDICARE, OTHER ==
[~2017-06-01] VITALS: Ht 182.9 cm; Wt 94.4 kg
--- NOTE | ~2017-06-01 | HP ---
Unit #: [id number] #: [id number] Patient: CAMMIE DOYLE [id number] [address] [place], [place] [address] [id number] MR#: [id number] NAME: CAMMIE DOYLE ROOM: 330 Age: 56 Sex: M Admission Date: 06/02/2017 : 1960 Attending Physician: Carissa Owens M.D. Primary Care Physician: Walter Hagan Jr., M.D. HISTORY AND PHYSICAL CHIEF COMPLAINT Hearing voices to kill himself, and generalized weakness. DISCUSSION This is a 56-year-old gentleman who has a history of multiple medical problems, COPD, chronic thrombocytopenia, obstructive sleep apnea on CPAP, history of lung nodules, history of right tongue base nodule, history of CHF with previous AICD, GERD, cholelithiasis, diabetes, hypertension, dyslipidemia, benign prostatic hypertrophy, paroxysmal A-fib. He presented to emergency room on 08/09/17 with a chief complaint that he is hearing voices to kill himself and patient was initially evaluated in the ER and it was tried to get [facility] to [facility] but [facility] refused to take, patient declined, and also he was trying other places and [facility] did not accept the patient and asked Dr. Garcia to see the patient. He will see the patient once patient is admitted after declining from [facility] and he has a 72 hour hold. He is on 72 hour hold and he is going to be admitted here to get psychiatric evaluation with Dr. Garcia. Otherwise, he is denying any chest pain. Denies nausea, vomiting, fever, cough, any other complaint. He said he usually walks at home with a walker. He denies any other complaint. PAST MEDICAL HISTORY 1. History of chronic thrombocytopenia. 2. COPD. 3. History of obstructive sleep apnea, on CPAP. 4. History of lung nodules, posterior right lung base. 5. History of CHF with previous AICD. 6. GERD. 7. Cholelithiasis. 8. Diabetes. 9. Hypertension. 10. Dyslipidemia. 11. Benign prostatic hypertrophy. 12. History of paroxysmal A-fib. 13. Degenerative joint disease. 14. History of bipolar disorder with major depression. PAST SURGICAL HISTORY 1. History of AICD. 2. Right knee surgery. ALLERGIES No known drug allergies. Unit #: [id number] #: [id number] Patient: CAMMIE DOYLE FAMILY HISTORY Negative for heart disease, lung disease. SOCIAL HISTORY The patient lives with caregiver. He used to smoke two packs daily for 30 years but he says he quit about a year ago. Does not drink alcohol. No other illicit drug use. REVIEW OF SYSTEMS All review of systems negative except for History of Present Illness. MEDICATIONS Medications from home as followin. Amiodarone 200 mg p.o. daily. 2. Singulair 10 mg daily. 3. Fortamet 500 mg twice a day. 4. Atorvastatin 10 mg daily. 5. Lisinopril 20 mg daily. 6. Mobic 7.5 mg twice a day. 7. Depakote 500 mg twice a day. 8. Coreg 12.5 twice a day. 9. Flomax 0.4 mg daily. 10. Prozac 30 mg daily. 11. Aspirin 325 four times daily p.r.n. 12. Neurontin 600 mg three times a day. 13. Lasix 20 mg twice a day. 14. Risperidone 3 mg at bedtime. 15. Protonix 40 mg daily. 16. Aldactone 25 mg daily. 17. Aspirin 81 mg daily. 18. Xopenex nebulizer three times a day p.r.n. PHYSICAL EXAMINATION GENERAL: Middle aged man lying in the bed comfortably, currently not in any distress. He is alert, awake, oriented x3. CURRENT VITAL SIGNS: Temperature 98.9, heart rate 69, respiratory rate 19, blood pressure 142/70. HEENT: Pupils equal, reactive to light and accommodation. Head is normocephalic, atraumatic. NECK: Supple. No JVD, no thyromegaly. LUNGS: Poor air entry but no rhonchi, no wheezing. HEART: S1, S2. Regular rate and rhythm. ABDOMEN: Soft, nontender, nondistended. Bowel sounds positive. EXTREMITIES: Trace edema. No cyanosis, no clubbing. NEURO: No focal neurologic deficit. Cranial nerves II-XII intact, moving all extremities. PSYCH: Normal mood and affect. SKIN: Warm and dry. DIAGNOSTIC STUDIES LABORATORY: CT head was done in the ER yesterday which shows no acute intracranial findings. Mild atrophy with mild paranasal sinus disease. Urine toxicology is negative. White count 4.9, hemoglobin 10, hematocrit 29.4, platelets 71. Unit #: [id number] #: [id number] Patient: CAMMIE DOYLE Sodium 140, potassium 3.9, chloride 99, glucose 123, BUN 29, creatinine 1.2. Alcohol level less than 5. ASSESSMENT AND PLAN 1. Psychosis with suicidal ideation with history of bipolar disorder: Will continue 72 hour hold. Admit the patient. Ask Dr. Garcia to evaluate and also [facility] to re-evaluate. Continue Risperidone and Prozac. 2. Generalized weakness: PT and OT to evaluate. 3. History of chronic thrombocytopenia. 4. COPD. 5. Obstructive sleep apnea, on CPAP. 6. History of lung nodule. 7. History of CHF with previous AICD. 8. History of GERD. 9. Diabetes. 10. Sliding scale: Continue metformin. 11. History of cholelithiasis. 12. History of hypertension. 13. History of questionable paroxysmal A-fib: He is currently on amiodarone. 14. History of dyslipidemia. 15. Benign prostatic hypertrophy. 16. DVT prophylaxis: Will place the patient on SCDs. Dictated by Sarah Mckinley/ed TD: 06/03/2017 08:33 JOB #: [id number] HISTORY AND PHYSICAL Page 1 of 1 X X HISTORY AND PHYSICAL
--- NOTE | ~2017-06-01 | CT71 ---
[facility] A Service of [facility] RADIOLOGY TEXT RESULTS PATIENT: CAMMIE DOYLE LOCATION: [facility] : 58 UNIT #: [id number] AGE: [address]: Hipolito Mendiola MD SEX: M ORDER DR: [id number] [facility] [address] [place], [place] [address] [id number] E MR#: [id number] #: [id number] NAME: CAMMIE DOYLE. : 1960 SEX: M STUDY DATE/TIME: 06/01/2017 16:48 UNIT: [facility] ROOM: STUDY DESCRIPTION: CT Head Wo Contrast Attending Physician: Rod Mauro M.D. Ordering Physician: Jackie Tomlin M.D. Primary Care Physician: Walter Hagan Jr., M.D. MEDICAL IMAGING REPORT This report is preliminary unless electronic signature is present EXAMINATION Noncontrast CT head. DATE 06/01/2017 HISTORY Fell on 05/31/2017 and hit frontal region on dresser. Now with headache for 2 days, hearing voices, suicidal thoughts for 4-5 days. Bipolar. Hypertension. COMPARISON Noncontrast CT head, 10/14/2011. TECHNIQUE This CT exam was performed with one or more of the following radiation dose reduction techniques: automatic exposure control, adjustment of mA and/or kV according to patient size, and iterative reconstruction. FINDINGS No acute intracranial hemorrhage, mass lesion, mass effect or midline shift is seen. There is mild parenchymal atrophy. Incidental note is made of septum cavum pellucidum and vergae, a congenital variant. Mild parenchymal atrophy. Mild paranasal sinus disease. No acute calvarial fracture is identified. IMPRESSION 1. No acute intracranial findings. 2. Mild atrophy and mild paranasal sinus disease. Dictated by... Shruti Pastrana M.D. [facility] A Service of [facility] RADIOLOGY TEXT RESULTS PATIENT: CAMMIE DOYLE LOCATION: [facility] : 58 UNIT #: [id number] AGE: [address]: Hipolito Mendiola MD SEX: M ORDER DR: THIS IS AN ELECTRONICALLY VERIFIED REPORT Shruti Pastrana M.D. at 06/02/2017 2:03 PM SALOMON/bernard TD: 06/01/2017 23:38 JOB #: [id number] MEDICAL IMAGING REPORT Page 1 of 1 COPY
--- NOTE | ~2017-06-01 | CO ---
Unit #: [id number] #: [id number] Patient: BIPIN DOYLE [id number] [facility] [address] [place] [address] [place], [place] [address] [id number] I MR#: [id number] NAME: BIPIN DOYLE ROOM: 330 Age: 56 Sex: M Admission Date: 06/02/2017 : 1960 Attending Physician: Carissa Owens M.D. Primary Care Physician: Walter Hagan Jr., M.D. Consultation Date: 06/03/2017 CONSULTATION REPORT REASON FOR CONSULTATION Suicidal ideation, depression, psychosis. HISTORY OF PRESENT ILLNESS Mr. Bipin Doyle is a 56-year-old white male, seen in room 330, bed 1 on 06/03/2017 at [facility]. The patient has a long history of depressive disorder. The patient presented with the above-mentioned complaint. The patient dressed in hospital attire, lying comfortably, able to answer questions appropriately. The patient reported that he is having difficulty with walking. The patient was living in a home with 24-hour nurse according to the patient. The patient's vital signs; temperature 98.1, heart rate 76, respirations 18, blood pressure 142/77, and oxygen saturation 92%. The patient reported passive SI. Still reported feeling sad, depressed, has a sitter, able to answer questions appropriately. PAST PSYCHIATRIC HISTORY Remarkable for history of previous treatment for depression at [facility]. MEDICAL HISTORY History of chronic thrombocytopenia, COPD, obstructive sleep apnea on CPAP, history of nodule on posterior right lung, CHF with previous AICD, GERD, cholelithiasis, diabetes, hypertension, dyslipidemia, benign prostatic hypertrophy, history of paroxysmal atrial fibrillation, degenerative joint disease, history of bipolar mood disorder. ALLERGIES No known drug allergies. MEDICATIONS The patient is on amlodipine, Singulair, Fortamet, atorvastatin, lisinopril, Mobic, Depakote 500 mg b.i.d., Coreg, Flomax, Prozac 30 mg daily, aspirin, Neurontin, Lasix, Risperdal 3 mg at bedtime, Protonix, Aldactone, aspirin, and Xopenex. FAMILY HISTORY AND SOCIAL HISTORY The patient lives by himself, has support from the nurse supervision. The patient denied any use of any drugs or alcohol. Denied any history of abuse. REVIEW OF SYSTEMS Complete review of systems is unremarkable except as mentioned above. Unit #: [id number] #: [id number] Patient: BIPIN DOYLE MENTAL STATUS EXAMINATION Vital signs, please see above. General appearance; the patient dressed casually in hospital attire, lying comfortably in bed, seemed anxious, nervous, sad, and depressed. Attention span and concentration, fair. Speech, slow in volume and rate. Oriented in time, place, and person. Mood and affect, sad and depressed. Thought process, concrete. Thought content, the patient reported having suicidal ideation, guarded, paranoia, hallucination, but able to contract for safety. Recent and remote memory, fair. Language, intact. Fund of knowledge, fair. Insight and judgment, fair to slightly impaired. DIAGNOSES Psychiatric: Bipolar mood disorder, recurrent, severe, depressed, F31.9. Secondary diagnosis: Deferred. Medical diagnosis: Please refer to H and P. Stressors: Psychosocial stressors. ASSESSMENT/PLAN 1. Supportive psychotherapy and psychoeducation provided to the patient. 2. Educated about benefits and side effects of medication and course and prognosis of illness. 3. Advised to continue with current medication with a plan to increase Prozac to 40 mg daily, and consider transferring the patient to inpatient psychiatric facility for psychiatric stabilization. Continue with sitter for safety. Please feel free to call if any questions, telephone #[phone]. Dictated by... Sarah Xiong/blayne TD: 06/04/2017 23:35 JOB #: [id number] CONSULTATION REPORT Page 1 of 1 X Anton Garcia MD X CONSULTATION REPORT
--- NOTE | ~2017-06-01 | DS ---
Unit #: [id number] #: [id number] Patient: CAMMIE DOYLE [id number] [address] [place], [place] [address] [id number] I MR#: [id number] NAME: CAMMIE DOYLE ROOM: 330 Age: 56 Sex: M Admission Date: 06/02/2017 : 1960 Discharge Date: 06/04/2017 Attending Physician: Carissa Owens M.D. Primary Care Physician: Walter Hagan Jr., M.D. DISCHARGE SUMMARY ADDENDUM HOSPITAL COURSE Patient was seen in consultation by Dr. Garcia and, after further evaluation, Dr. Garcia did not feel inpatient psychiatric hospitalization was needed. The patient's Prozac was increased to 40 mg daily on discharge. The patient was discharged home and home health was set up regarding his significant profound weakness which was found on PT/OT. (Unfortunately, due to the patient's observation status, he would not qualify for inpatient subacute rehab). I have discussed these findings with patient's caregiver, Aline Ji, today, and I have called in a two month prescription for Prozac 40 mg to patient's pharmacy. It was called in to [facility], phone number [phone], for Prozac 40 mg daily with one refill. Dictated by... Carissa Owens M.D. SALOMON/ed TD: 06/05/2017 10:54 JOB #: [id number] DISCHARGE SUMMARY Page 1 of 1 X Carissa Owens MD X DISCHARGE SUMMARY
--- NOTE | ~2017-06-01 | DS ---
Unit #: [id number] #: [id number] Patient: CAMMIE DOYLE [id number] [address] [place], [place] [address] [id number] I MR#: [id number] NAME: CAMMIE DOYLE ROOM: 330 Age: 56 Sex: M Admission Date: 06/02/2017 : 1960 Discharge Date: 06/03/2017 Attending Physician: Carissa Owens M.D. Primary Care Physician: Walter Hagan Jr., M.D. DISCHARGE SUMMARY PRINCIPAL DIAGNOSES 1. Acute visual hallucinations. 2. Acute auditory hallucinations with associated suicidal ideation. 3. Chronic thrombocytopenia with discharge platelet count of 71: This is patient's baseline. 4. Chronic obstructive pulmonary disease without exacerbation. 5. Obstructive sleep apnea, maintained on CPAP. 6. History of diabetes mellitus type 2 with associated peripheral neuropathy with last reported hemoglobin A1c of 4.8: Stable glucose readings here. 7. Hypertension. 8. History of paroxysmal atrial fibrillation, currently maintained in normal sinus rhythm. 9. History of congestive heart failure, reportedly diastolic: Status post automatic implantable cardioverter defibrillator placement. 10. Major depressive disorder. 11. Benign prostatic hypertrophy. 12. Hyperlipidemia. 13. Seasonal allergies. 14. Osteoarthritis. 15. Gastroesophageal reflux disease. 16. Overweight. CONSULTANTS Dr. Garcia - Psychiatry. PROCEDURES None. CLINICAL HISTORY/HOSPITAL COURSE Mr. Doyle is a 56-year-old male who presents to the emergency department with auditory hallucinations. He states that the voices were telling him to kill himself. He has had prior history of visual and auditory hallucinations in the past. It is my understanding it was difficult to obtain a psychiatric facility for him and, thus, patient was placed on 72 hour hold and placed in our facility for monitoring overnight. This morning, patient states he is having some lower extremity edema and states he can't walk. However, he tells me he has been walking with a walker for many years. I am going to obtain a stat PT/OT eval but I don't clinically see anything acute. I am currently awaiting psychiatry evaluation but I suspect patient requires inpatient psychiatric care and will be discharged to inpatient psychiatric care facility later today. All of patient's baseline medical conditions are otherwise stable and, again, at baseline. Unit #: [id number] #: [id number] Patient: CAMMIE DOYLE DISCHARGE CONDITION Stable. DISCHARGE STATUS Discharge to inpatient psychiatric care facility. DISCHARGE MEDICATIONS 1. Flomax 0.4 mg daily. 2. Amiodarone 200 mg daily. 3. Tylenol 325 mg p.o. four times daily p.r.n. for pain. 4. Depakote ER 500 mg b.i.d. 5. Neurontin 600 mg t.i.d. 6. Prozac 30 mg daily. 7. I am going to hold metformin given sugars have been in the 90s here. 8. Risperdal 3 mg at bedtime. 9. Coreg 12.5 mg b.i.d. 10. Lasix 20 mg b.i.d. 11. Atorvastatin 10 mg at bedtime. 12. Lisinopril 20 mg at bedtime. 13. Singulair 10 mg daily. 14. Aspirin 81 mg daily. 15. Mobic 7.5 mg b.i.d. 16. Spironolactone 12.5 mg daily. 17. Protonix 40 mg daily. 18. Xopenex nebulizer solution t.i.d. p.r.n. for shortness of breath. DISCHARGE INSTRUCTIONS Patient instructed to follow a heart healthy constant carb diet. He can increase his activity as tolerated, just use his walker. Should also use his CPAP at night. Patient can follow with [facility] upon discharge from psychiatric facility. Dictated by... Carissa Owens M.D. SALOMON/ed TD: 06/03/2017 12:27 JOB #: [id number] DISCHARGE SUMMARY Page 1 of 1 X Carissa Owens MD DISCHARGE SUMMARY
[~2017-06-01 14:04] MED LIST changes: +ACETAMINOPHEN325 MG PO; +ALDACTONE PO; +AMIODARONE HCL200 MG PO; +ASPIRIN81 M2 PO; +COREG12.5 M1 PO; +DEPAKOTE ER PO; +DOCUSATE SODIU100 MG PO; +FLOMAX0.4 M1 PO; +GRALISE600 MG PO; +HUMULIN N100 UNIT/2 SUBQ; +HUMULIN R100 UNIT/1 SUBQ; +LASIX20 MG PO; +LISINOPRIL PO; +LORTAB 5-325 M1 EACH PO; +MELOXICAM7.5 MG PO; +MOBIC PO; +NITROFURANTOIN100 M3 PO; +PANTOPRAZOLE SO40 MG PO; +PATIENT'S PHARMACY; +PROZAC10 M1 PO; +RISPERIDONE PO; +SINGULAIR PO; +XOPENEX0.63 MG/3 NEB
[2017-06-01 17:06] LABS: BASOPHIL% 0.2 % (0-2.5); EOSINOPHIL% 0.7 % (0.0-7.0); HEMATOCRIT 29.4 % (38.0-50.0); HEMOGLOBIN 10.1 gm/dL (13.0-16.0); LYMPHOCYTE# 0.8 X10e3 (1.0-3.5); LYMPHOCYTE% 15.4 % (17.0-45.0); MEAN CELL VOLUME 95.2 FL (83-96); MEAN CORPUSCULAR HEMOGLOBIN 32.7 PG (28-34); MEAN CORPUSCULAR HGB CONC 34.3 g/dL (30-36); MONOCYTE# 0.4 X10e3 (0-1.0); NEUTROPHIL# 3.7 X10e3 (1.5-7.1); NEUTROPHIL% 75.7 % (40-75); RED BLOOD COUNT 3.09 X10e (3.90-5.60); RED CELL DISTRIBUTION WIDTH 13.7 % (11.0-15.5); WHITE BLOOD COUNT 4.9 X10e3 (4.0-10.5)
[2017-06-01 17:19] LABS: ACETAMINOPHEN <10 ug/mL; ALCOHOL BLOOD <5 mg/dL (0); BLOOD UREA NITROGEN 29 mg/dL (9-23); BUN/CREATININE RATIO 24.16; CALCIUM SERUM 8.9 mg/dL (8.4-10.2); CARBON DIOXIDE 35 mmol/L (22-31); CHLORIDE 99 mmol/L (100-111); CREATININE SERUM 1.2 mg/dL (0.6-1.4); GLOM FILT RATE Estimated 66.7 mL/min (>60); GLUCOSE FASTING 123 mg/dL (70-110); POTASSIUM 3.9 mmol/L (3.5-5.1); SODIUM 140 mmol/L (135-145)
[2017-06-01 17:25] LABS: PLATELET COUNT 71 X10e3 (140-420)
[2017-06-01 17:26] LABS: DIFF IND NO
[2017-06-01 18:29] LABS: AMPHETAMINE NEG (NEG); BARBITURATES NEG (NEG); BENZODIAZEPINES NEG (NEG); COCAINE NEG (NEG); MARIJUANA NEG (NEG); OPIATES NEG (NEG); TRICYCLIC ANTIDEPRESSANTS NEG (NEG); U METHADONE NEG (NEG)
[2017-06-02] MEDS ORDERED: MOBIC PO (09:36)
[2017-06-02] MEDS ORDERED: DEPAKOTE ER PO (09:36)
[2017-06-02] MEDS ORDERED: FLOMAX0.4 M1 PO (09:37)
[2017-06-02] MEDS ORDERED: CARVEDILOL12.5 MG PO (09:37)
[2017-06-02] MEDS ORDERED: AMIODARONE HCL200 MG PO (09:38)
[2017-06-02] MEDS ORDERED: PROZAC10 M1 PO (09:38)
[2017-06-02] MEDS ORDERED: SINGULAIR PO (09:39)
[2017-06-02] MEDS ORDERED: FORTAMET500 MG PO (09:39)
[2017-06-02] MEDS ORDERED: ATORVASTATIN CA10 MG PO (09:39)
[2017-06-02] MEDS ORDERED: PANTOPRAZOLE SO40 MG PO (09:40)
[2017-06-02] MEDS ORDERED: LISINOPRIL20 MG PO (09:40)
[2017-06-02] MEDS ORDERED: RISPERIDONE M-TA3 MG PO (09:40)
[2017-06-02] MEDS ORDERED: ALDACTONE25 MG PO (09:41)
[2017-06-02] MEDS ORDERED: XOPENEX0.63 MG/3 INH (09:42)
[2017-06-02] MEDS ORDERED: ASPIRIN81 MG PO (09:42)
[2017-06-02] MEDS ORDERED: NEURONTIN600 MG PO (09:43)
[2017-06-02] MEDS ORDERED: APAP325 M1 PO (09:43)
[2017-06-02] MEDS ORDERED: LASIX20 MG PO (09:43)
[2017-06-03] MEDS ORDERED: TYL325 PO (19:53)
[2017-06-03] MEDS ORDERED: GABAPENTIN600 MG PO (19:54)
[2017-06-03] MEDS ORDERED: LASIX20 MG PO (19:55)
[2017-06-03] MEDS ORDERED: RISPERDAL3 MG PO (19:55)
[2017-06-03] MEDS ORDERED: LISINOPRIL20 MG PO (19:55)
[2017-06-03] MEDS ORDERED: ALDACTONE25 MG PO (19:56)
[2017-06-03] MEDS ORDERED: SINGULAIR PO (19:56)
[2017-06-03] MEDS ORDERED: ASPIRIN81 MG PO (19:56)
[2017-06-03] MEDS ORDERED: XOPENEX0.63 MG/3 INH (19:57)
[2017-06-03] MEDS ORDERED: PROTONIX PO (19:57)
== END 2017-06-04 00:19 | disposition home or self-care (01) ==
LOC: CED 14:04 → CEDOF 06-02 20:45 → CED 06-02 21:15 → C3A PCU 06-02 22:25 → CEDOF 06-02 22:25 → C3A PCU 06-03 05:28
PROVIDERS: Emergency Medicine
DX: R44.0 Auditory hallucinations (principal); R44.1 Visual hallucinations; R45.851 Suicidal ideations; D69.6 Thrombocytopenia, unspecified; J44.9 Chronic obstructive pulmonary disease, unspecified; G47.33 Obstructive sleep apnea (adult) (pediatric); E11.40 Type 2 diabetes mellitus with diabetic neuropathy, unspecified; I11.0 Hypertensive heart disease with heart failure; I50.30 Unspecified diastolic (congestive) heart failure; N40.0 Benign prostatic hyperplasia without lower urinary tract symptoms; K21.9 Gastro-esophageal reflux disease without esophagitis; M19.90 Unspecified osteoarthritis, unspecified site; F32.9 Major depressive disorder, single episode, unspecified; Z79.82 Long term (current) use of aspirin; Z79.899 Other long term (current) drug therapy; Z95.810 Presence of automatic (implantable) cardiac defibrillator
CPT/HCPCS: 36415; 70450; 80048; 80307; 82607; 82947; 84443; 85025; 94760; 97163; 97530; 99285; G0378; G0480; G8978-GP; G8979-GP